=== PATIENT | male | born 1980 | race Caucasian/White ===

== ENCOUNTER 2016-10-29 15:31 | Emergency (ER) | payer MEDICAID ==
[~2016-10-29] VITALS: Ht 180.3 cm; Wt 102.5 kg
[~2016-10-29 15:31] MED LIST: AZIT250T94 PO; CEPH-443 PO; CETI-240 PO; CLIN-73 PO; DOXY-220 PO; HYDR-3498 PO; IBUP-1542 PO; NAPR-260 PO; PSEU120T11 PO; PSEU120T51 PO; UDROBDM PO
[2016-10-29 15:35] VITALS: Ht 180.3 cm; Wt 102.5 kg
--- NOTE | 2016-10-29 16:18 | ERD ---
ER Documentation Chief Complaint Date/Time DATE: 10/29/16 TIME: 16:15 Chief Complaint FEELING WEAK,FEELING FEBRILE,WEAKNESS HPI This 35-year-old male patient reports 3 day history of frontal sinus pressure. Fatigue. Patient denies any headache, blurred vision, or dizziness. Patient has tried [id number] medication, denies history of seasonal allergies, asthma, smoking, or antibiotic use within the last 3 months ROS All systems reviewed and are negative except as per history of present illness. Medications Home Meds Active Scripts Acetaminophen* (Tylenol*) 325 Mg Tablet, 2 TAB PO Q6 Y for PAIN AND OR ELEVATED TEMP, #20 TAB Prov:MAU MEDEL PA-C 11/03/16 Ondansetron (Ondansetron Odt) 4 Mg Tab.rapdis, 4 MG PO Q6H Y for NAUSEA AND/OR VOMITING, #10 TAB Prov:MAU MEDEL PA-C 11/03/16 Ibuprofen/Pseudoephedrine Hcl (ADVIL COLD-SINUS LIQUI-GELS) 1 Each Capsule, 1 EACH PO 4 for body aches, sinus congestion for 3 Days, CAP Prov:IAN,MELODY 10/29/16 Doxycycline Monohydrate* (Doxycycline Monohydrate*) 100 Mg Tablet, 100 MG PO BID for 10 Days, TAB Prov:JUAN C BEGUM MD 11/13/15 Cetirizine Hcl* (Cetirizine Hcl*) 10 Mg Tablet, 10 MG PO DAILY, #14 TAB Prov:JUAN C BEGUM MD 11/13/15 Pseudoephedrine Hcl (Sudafed 12 Hour) 120 Mg Tablet.sa, 120 MG PO q day for congestion, #14 Prov:JUAN C BEGUM MD 11/13/15 Doxycycline Monohydrate* (Doxycycline Monohydrate*) 100 Mg Tablet, 100 MG PO BID for 10 Days, TAB Prov:JUAN C BEGUM MD 11/13/15 Cephalexin* (Keflex*) 500 Mg Capsule, 500 MG PO QID for 7 Days, CAP Prov:PABLO QUEEN NP 11/03/15 Ibuprofen* (Motrin*) 600 Mg Tab, 600 MG PO Q8, #30 TAB 0 Refills Prov:GREGORIO BILL PA-C 09/28/15 Guaifenesin-Dextromethorphan* (Robitussin* DM) 100MG/10MG/5ML Syrup, 10 ML PO Q6H Y for COUGH, #240 ML 0 Refills Prov:GREGORIO BILL PA-C 09/28/15 Azithromycin* (Zithromax*) 250 Mg Tablet, 250 MG PO .ZPACK DIRECTED, #6 TAB 0 Refills TAKE 500 MG (2 TABS) THE FIRST DAY THEN 250 MG (1 TAB) DAYS 2-5 Prov:GREGORIO BILL PA-C 09/28/15 Pseudoephedrine Hcl (Sudafe 12-Hour) 120 Mg Tablet.er, 120 MG PO BID Y for CONGESTION, #14 TAB.SA Prov:JUAN C BEGUM MD 08/12/15 Ibuprofen* (Motrin*) 600 Mg Tab, 600 MG PO Q6, #20 TAB Prov:JUAN C BEGUM MD 08/12/15 Azithromycin* (Zithromax*) 250 Mg Tablet, 250 MG PO .ZPACK DIRECTED, #6 TAB TAKE 500 MG (2 TABS) THE FIRST DAY THEN 250 MG (1 TAB) DAYS 2-5 Prov:JUAN C BEGUM MD 08/12/15 Naproxen* (Naprosyn*) 500 Mg Tablet, 500 MG PO BID Y for PAIN AND/OR INFLAMMATION, #30 TAB Prov:ERIC GERBER PA-C 04/18/15 Clindamycin Hcl* (Clindamycin Hcl*) 300 Mg Capsule, 450 MG PO TID for 10 Days, CAP Prov:ERIC GERBER PA-C 04/18/15 Hydrocodone Bit-Acetaminophen* ([place]*) 5-325 Mg Tab, 1 TAB PO Q6 Y for PAIN, # 15 TAB Prov:ERIC GERBER PA-C 04/18/15 Reported Medications Hydrocodone Bit-Acetaminophen* (Hydrocodone-APAP*) 5-325 Tablet, 1 TAB PO Q6 Y for PAIN LEVEL 1-5, TAB 12/29/14 Allergies Allergies: Coded Allergies: cephalexin (Verified Allergy, Unknown, hives, 11/03/16) PMhx/Soc History of Surgery: No Anesthesia Reaction: No Hx Neurological Disorder: No Hx Respiratory Disorders: No Hx Cardiac Disorders: No Hx Miscellaneous Medical Probl: No Hx Alcohol Use: No Hx Substance Use: No Hx Tobacco Use: No Physical Exam Vitals Vitals stable, triage notes reviewed Physical Exam Const: No acute distress Head: Atraumatic Eyes: Normal Conjunctiva, clear, EOMI ENT: Right tympanic membrane retracted and dull, left tympanic membrane translucent, positive light reflex, and nasal mucosa edematous turbinates +2, no bleeding points, no maxillary or frontal sinus tenderness. Pharynx pink, uvula rises and falls with pronation. Neck: Full range of motion..~ No meningismus. Resp: Clear to auscultation bilaterally Cardio: Regular rate and rhythm, no murmurs Abd: Skin: Back: Ext: Neur: Awake and alert Psych: Normal Mood and Affect Procedures/MDM This pleasant 36-year-old male patient presents to the emergency department with 3 day history of nasal congestion, sinus pressure and fatigue. Patient has tried no [id number] medication. Denies any fever or dizziness. Low suspicion for bacterial infection. Patient likely suffering from seasonal allergies or upper respiratory infection. Plan to treat patient with over-the- counter Advil cold and sinus, saline nasal spray, rest, fluids for additional 7 days if symptoms still persist after 7 days follow-up with primary care physician I feel patient can be managed in the outpatient setting and is stable for discharge at this time. I have discussed results, examination findings, the treatment plan with the patient and family present prior to discharge. Indications for emergent reevaluation, side effects of medication were also discussed. All questions were answered. Patient verbalizes understanding and agrees with plan of care. Departure Diagnosis: Primary Impression: Upper respiratory infection URI type: unspecified viral URI Qualified Code: J06.9 - Viral upper respiratory tract infection Patient Instructions: Adult Self-Care for Colds Additional Instructions: Thank you for for coming to [facility] for your care today. Please ask your nurse or provider if you have questions about your care today and do not leave until all your questions have been answered. Please use any medications given as directed and follow-up with your doctor (or the doctor you were referred to) in the next 2-3 days. If you do not have a primary care doctor you may [place] [facility] [place] ([place] You may also use motrin and tylenol as needed for fever and/or pain unless instructed otherwise by your provider or nurse. Indications for more urgent follow-up have been discussed, but you may return to the Emergency Department at ANY time for any worrisome or worsening symptoms. If you have abdominal pain, please know that no test or exam you received is perfect and you should follow up within 8 hours for continued pain. If you had any imaging studies today, such as an X-Ray or CT Scan, these studies will be reviewed later by a radiologist. You will be called if there are important findings that were not identified today, so make sure the contact information you provided at registration is correct. If you received any narcotic pain control medicine today, such as Vicodin, Morphine or Dilaudid, your coordination and judgment may be affected for a number of hours. Please do not drive or operate heavy machinery, and you may want someone to assist you at home. If you were given a prescription for narcotic medication, be aware that it is very addictive- use sparingly and only if necessary. IAN SOSA Oct 29, 2016 16:18
[2016-10-29] MEDS ORDERED: IBUP1CAP2 PO (16:21)
== END 2016-10-29 16:23 | disposition home or self-care (01) ==
LOC: E/R 15:31
DX: J06.9 Acute upper respiratory infection, unspecified (principal)
CPT/HCPCS: 99283

== ENCOUNTER 2016-11-03 08:41 | Emergency (ER) | payer MEDICAID ==
[~2016-11-03] VITALS: Ht 170.2 cm; Wt 104.0 kg
[~2016-11-03 08:41] MED LIST changes: +IBUP1CAP2 PO
[2016-11-03 08:43] VITALS: Ht 170.2 cm; Wt 104.0 kg
[2016-11-03] MEDS ORDERED: SOD CHLORIDE 0.9% 1,000 ML IV STA (09:31)
[2016-11-03] MEDS ORDERED: morphine 4 MG/ML VIAL IV STA (09:31)
[2016-11-03] MEDS ORDERED: ONDANSETRON 4 MG INJ IV STA (09:31)
[2016-11-03 09:51] LABS: ADD SCAN DIFF NO
[2016-11-03] MEDS ORDERED: ACETAMINOPHEN 325 MG TAB PO ONE (10:00)
[2016-11-03 10:01] LABS: BASOPHIL # 0.1 10^3/ul (0.0-0.1); BASOPHILS % 1.3 % (0.0-2.0); EOSINOPHILS # 0.4 10^3/ul (0.0-0.5); HEMATOCRIT 46.4 % (42.0-52.0); HEMOGLOBIN 15.4 g/dl (14.0-18.0); LYMPHOCYTES # 2.9 10^3/ul (0.8-2.9); LYMPHOCYTES % 40.3 % (15.0-51.0); MEAN CORPUSCULAR HEMOGLOBIN 30.7 pg (29.0-33.0); MEAN CORPUSCULAR HGB CONC 33.2 g/dl (32.0-37.0); MEAN CORPUSCULAR VOLUME 92.4 fl (82.0-101.0); MEAN PLATELET VOLUME 11.1 fl (7.4-10.4); MONOCYTE # 0.5 10^3/ul (0.3-0.9); MONOCYTES % 6.4 % (0.0-11.0); NEUTROPHIL # 3.3 10^3/ul (1.6-7.5); NEUTROPHILS % 45.7 % (39.0-77.0); PLATELET COUNT 217 10^3/UL (140-415); RED BLOOD COUNT 5.02 10^6/ul (4.70-6.10); RED CELL DISTRIBUTION WIDTH 12.7 % (11.5-14.5); WHITE BLOOD COUNT 7.1 10^3/ul (4.8-10.8)
--- NOTE | 2016-11-03 10:10 | ERD ---
ER Documentation Chief Complaint Date/Time DATE: 11/03/16 TIME: 10:06 Chief Complaint left abdominal pain x 4 days HPI 35-year-old male presents to the emergency department complaining of left sided abdominal pain 6 days. Patient describes the pain as an intermittent 4 out of 10 burning in sensation with associated nausea. Patient states he has attempted to treat his discomfort with ibuprofen at home with some relief. Patient states he has never experienced this pain in the past. Patient denies any diarrhea, vomiting, or dysuria. Patient was seen here recently for upper respiratory symptoms. ROS All systems reviewed and are negative except as per history of present illness. Medications Home Meds Active Scripts Acetaminophen* (Tylenol*) 325 Mg Tablet, 2 TAB PO Q6 Y for PAIN AND OR ELEVATED TEMP, #20 TAB Prov:MAU MEDEL PA-C 11/03/16 Ondansetron (Ondansetron Odt) 4 Mg Tab.rapdis, 4 MG PO Q6H Y for NAUSEA AND/OR VOMITING, #10 TAB Prov:MAU MEDEL PA-C 11/03/16 Ibuprofen/Pseudoephedrine Hcl (ADVIL COLD-SINUS LIQUI-GELS) 1 Each Capsule, 1 EACH PO 4 for body aches, sinus congestion for 3 Days, CAP Prov:IANIAN GALEAS 10/29/16 Doxycycline Monohydrate* (Doxycycline Monohydrate*) 100 Mg Tablet, 100 MG PO BID for 10 Days, TAB Prov:JUAN C BEGUM MD 11/13/15 Cetirizine Hcl* (Cetirizine Hcl*) 10 Mg Tablet, 10 MG PO DAILY, #14 TAB Prov:JUAN C BEGUM MD 11/13/15 Pseudoephedrine Hcl (Sudafed 12 Hour) 120 Mg Tablet.sa, 120 MG PO q day for congestion, #14 Prov:JUAN C BEGUM MD 11/13/15 Doxycycline Monohydrate* (Doxycycline Monohydrate*) 100 Mg Tablet, 100 MG PO BID for 10 Days, TAB Prov:JUAN C BEGUM MD 11/13/15 Cephalexin* (Keflex*) 500 Mg Capsule, 500 MG PO QID for 7 Days, CAP Prov:PABLO QUEEN NP 11/03/15 Ibuprofen* (Motrin*) 600 Mg Tab, 600 MG PO Q8, #30 TAB 0 Refills Prov:GREGORIO BILL PA-C 09/28/15 Guaifenesin-Dextromethorphan* (Robitussin* DM) 100MG/10MG/5ML Syrup, 10 ML PO Q6H Y for COUGH, #240 ML 0 Refills Prov:GREGORIO BILL PA-C 09/28/15 Azithromycin* (Zithromax*) 250 Mg Tablet, 250 MG PO .ZPACK DIRECTED, #6 TAB 0 Refills TAKE 500 MG (2 TABS) THE FIRST DAY THEN 250 MG (1 TAB) DAYS 2-5 Prov:GREGORIO BILL PA-C 09/28/15 Pseudoephedrine Hcl (Sudafe 12-Hour) 120 Mg Tablet.er, 120 MG PO BID Y for CONGESTION, #14 TAB.SA Prov:JUAN C BEGUM MD 08/12/15 Ibuprofen* (Motrin*) 600 Mg Tab, 600 MG PO Q6, #20 TAB Prov:JUAN C BEGUM MD 08/12/15 Azithromycin* (Zithromax*) 250 Mg Tablet, 250 MG PO .ZPACK DIRECTED, #6 TAB TAKE 500 MG (2 TABS) THE FIRST DAY THEN 250 MG (1 TAB) DAYS 2-5 Prov:JUAN C BEGUM MD 08/12/15 Naproxen* (Naprosyn*) 500 Mg Tablet, 500 MG PO BID Y for PAIN AND/OR INFLAMMATION, #30 TAB Prov:ERIC GERBER PA-C 04/18/15 Clindamycin Hcl* (Clindamycin Hcl*) 300 Mg Capsule, 450 MG PO TID for 10 Days, CAP Prov:ERIC GERBER PA-C 04/18/15 Hydrocodone Bit-Acetaminophen* ([place]*) 5-325 Mg Tab, 1 TAB PO Q6 Y for PAIN, # 15 TAB Prov:ERIC GERBER PA-C 04/18/15 Reported Medications Hydrocodone Bit-Acetaminophen* (Hydrocodone-APAP*) 5-325 Tablet, 1 TAB PO Q6 Y for PAIN LEVEL 1-5, TAB 12/29/14 Allergies Allergies: Coded Allergies: cephalexin (Verified Allergy, Unknown, hives, 11/03/16) PMhx/Soc History of Surgery: No Anesthesia Reaction: No Hx Neurological Disorder: No Hx Respiratory Disorders: No Hx Cardiac Disorders: No Hx Miscellaneous Medical Probl: No Hx Alcohol Use: No Hx Substance Use: No Hx Tobacco Use: No Physical Exam Vitals Vital Signs Date Time Temp Pulse Resp B/P Pulse Ox O2 Delivery O2 Flow Rate FiO2 11/03/16 11:39 98.1 77 18 129/69 98 Room Air 11/03/16 08:43 96.9 65 18 127/88 98 Physical Exam Const: Well-developed, well-nourished, no acute distress Head: Atraumatic Eyes: Normal Conjunctiva ENT: Normal External Ears, Nose and Mouth. Neck: Full range of motion..~ No meningismus. Resp: Clear to auscultation bilaterally Cardio: Regular rate and rhythm, no murmurs Abd: Soft, non distended. Normal bowel sounds. Tenderness to palpation of upper and lower left quadrants. Negative McBurney's point tenderness. Negative Mueller sign. Skin: No petechiae or rashes Back: No midline or flank tenderness Ext: No cyanosis, or edema Neur: Awake and alert Psych: Normal Mood and Affect Result Diagram: 11/03/16 0940 11/03/16 0940 Results 24 hrs Laboratory Tests Test 11/03/16 09:40 White Blood Count 7.110^3/ul Red Blood Count 5.0210^6/ul Hemoglobin 15.4g/dl Hematocrit 46.4% Mean Corpuscular Volume 92.4fl Mean Corpuscular Hemoglobin 30.7pg Mean Corpuscular Hemoglobin Concent 33.2g/dl Red Cell Distribution Width 12.7% Platelet Count 98121^3/UL Mean Platelet Volume 11.1fl Neutrophils % 45.7% Lymphocytes % 40.3% Monocytes % 6.4% Eosinophils % 5.0% Basophils % 1.3% Nucleated Red Blood Cells % 0.0/100WBC Neutrophils # 3.310^3/ul Lymphocytes # 2.910^3/ul Monocytes # 0.510^3/ul Eosinophils # 0.410^3/ul Basophils # 0.110^3/ul Nucleated Red Blood Cells # 0.010^3/ul Urine Color LT. YELLOW Urine Clarity CLEAR Urine pH 6.5 Urine Specific [place] <=1.005 Urine Ketones NEGATIVE Urine Nitrite NEGATIVE Urine Bilirubin NEGATIVE Urine Urobilinogen 0.2 E.U./dL Urine Leukocyte Esterase NEGATIVE Urine Hemoglobin NEGATIVE Urine Glucose NEGATIVE% Urine Total Protein NEGATIVE Sodium Level 142mmol/L Potassium Level 4.3mmol/L Chloride Level 102mmol/L Carbon Dioxide Level 28mmol/L Anion Gap 16 Blood Urea Nitrogen 14mg/dl Creatinine 0.65mg/dl Glucose Level 98mg/dl Calcium Level 9.3mg/dl Total Bilirubin 0.5mg/dl Direct Bilirubin 0.00mg/dl Indirect Bilirubin 0.5mg/dl Aspartate Amino Transf (AST/SGOT) 33IU/L Alanine Aminotransferase (ALT/SGPT) 62IU/L Alkaline Phosphatase 61IU/L Total Protein 7.9g/dl Albumin 4.6g/dl Globulin 3.30g/dl Albumin/Globulin Ratio 1.39 Lipase 51U/L Current Medications Medications (Trade) Dose Ordered Sig/Jorje Route PRN Reason Start Time Stop Time Status Last Admin Dose Admin Sodium Chloride (NS) 1,000 ml @ 1,000 mls/hr Q1H STAT IV 11/03/16 09:31 11/03/16 10:30 DC 11/03/16 09:40 Morphine Sulfate (morphine) 4 mg ONCE STAT IV 11/03/16 09:31 11/03/16 09:45 DC Ondansetron HCl (Zofran Inj) 4 mg ONCE STAT IV 11/03/16 09:31 11/03/16 09:33 DC 11/03/16 09:41 Acetaminophen (Tylenol Tab) 650 mg ONCE ONCE PO 11/03/16 10:00 11/03/16 10:01 DC 11/03/16 09:50 Procedures/MDM PROCEDURE: CT Abdomen and pelvis without contrast. CLINICAL INDICATION: Left-sided abdominal pain for 6 days TECHNIQUE: CT scan of the abdomen and pelvis without contrast was performed on a multidetector high-resolution CT scan. . Coronal and sagittal reformatted images were obtained from the axial source images. Standard CT scan of the abdomen pelvis without contrast protocols were performed. The total exam CTDI equals 22.05 mGy and the total exam DLP equals 1463.51 mGy- cm. One or more of the following dose reduction techniques were used: - Automated exposure control. - Adjustment of the mA and/or kV according to patient size. Use of iterative reconstruction technique. COMPARISON: None. FINDINGS: The kidneys are normal in size without evidence of calcified renal calculi, hydronephrosis or intra renal masses bilaterally. The ureters and urinary bladder are unremarkable. The stomach, small bowel, large bowel and appendix are unremarkable. Negative for intra-abdominal free air, free fluid, abscesses or lymphadenopathy. The gallbladder is unremarkable and there is no evidence of biliary ductal dilation. Liver is normal in size with mild hepatic fatty infiltration but no focal hepatic lesions. The spleen adrenal glands pancreas are unremarkable. The aorta is unremarkable. The lung bases are unremarkable. There is degenerative changes lower thoracic and lumbar spine. There are no acute osseous findings are osteoblastic/osteolytic lesions. There is a small fat containing umbilical hernia but no herniated bowel or strangulation. IMPRESSION: 1. No evidence of calcified urinary calculi or obstructive uropathy. 2. Unremarkable appendix. 3. Negative for intra-abdominal free air fluid or lymphadenopathy. 4. Small fat containing umbilical hernia but no herniated bowel or strangulation. RPTAT:AAJJ Physician Satinder Date Time Electronically viewed and signed by Physician Satinder on 11/03/2016 10:35 BM/ CC: MAU MEDEL PA-C This is a 35-year-old male who presents with left-sided burning abdominal pain 6 days. Vital signs were reviewed. Patient is afebrile. Patient is not hypoxic, non-tachycardic and normotensive. Abdominal exam revealed left lower and left upper quadrant abdominal tenderness to superficial and deep palpation. CBC showed no evidence of systemic infection or severe anemia. CMP showed no evidence of electrolyte abnormalities, severe acidosis, alkalosis , renal failure, or liver disease. Lipase showed no evidence of acute pancreatitis. UA showed no evidence of acute infection or hematuria. Patient received a bolus of fluids as well as Zofran and Tylenol while in the emergency department. Patient reports improvement of symptoms post treatment. Abdominal CT unremarkable for appendicitis, lymphadenopathy, free air, or renal calculi. There was a small fat-containing umbilical hernia appreciated without evidence of herniation or strangulation of the bowel. Patient notes nausea but denies any vomiting or diarrhea. Patient's last bowel movement was this morning and normal for him. Given these findings, the patients presentation is most consistent with abdominal pain and umbilical hernia. I have a low suspicion for strangulated herniation of bowel, appendicitis, constipation, abdominal aortic aneurysm, kidney stone, diverticulitis, diverticulosis, small bowel obstruction, pancreatitis, cholecystitis, or other acute abdomen. Patient will receive Tylenol for pain. I instructed the patient to follow-up with primary care physician for referral to a GI specialist if symptoms continue. Based on patient's history of present illness and physical examination the decision was made to discharge. The patient was re-evaluated after ED treatment and stabilizing measures, and symptoms have improved. There is no evidence of life threatening injuries or illnesses at this time. On re-examination, patient resting in no distress, stable vital signs, reports feeling better and safe for discharge with outpatient follow up with PMD in 1-2 days. Patient given return precautions. Departure Diagnosis: Primary Impression: Abdominal pain Abdominal location: left lower quadrant Qualified Code: R10.32 - Left lower quadrant pain Additional Impression: Umbilical hernia Obstruction and gangrene presence: without obstruction or gangrene Qualified Code: K42.9 - Umbilical hernia without obstruction and without gangrene MAU MEDEL PA-C Nov 03, 2016 10:10
[2016-11-03 10:11] LABS: ADD UMIC NO; URINE BILIRUBIN (Dip) NEGATIVE (NEGATIVE); URINE BLOOD (Dip) NEGATIVE (NEGATIVE); URINE COLOR LT. YELLOW (YELLOW); URINE GLUCOSE (Dip) NEGATIVE (NEGATIVE); URINE KETONES (Dip) NEGATIVE (NEGATIVE); URINE LEUKOCYTE ESTERASE (Dip) NEGATIVE (NEGATIVE); URINE NITRITE (Dip) NEGATIVE (NEGATIVE); URINE TOTAL PROTEIN (Dip) NEGATIVE (NEGATIVE); URINE UROBILINOGEN (Dip) 0.2 E.U./dL (0.1-1.0)
[2016-11-03 10:13] LABS: ALBUMIN 4.6 g/dl (3.3-4.9)
[2016-11-03 10:14] LABS: POTASSIUM 4.3 mmol/L (3.5-5.1)
[2016-11-03 10:16] LABS: ALBUMIN/GLOBULIN RATIO 1.39; BILIRUBIN,INDIRECT 0.5 mg/dl (0-1.1); BILIRUBIN,TOTAL 0.5 mg/dl (0.2-1.3); CREATININE 0.65 mg/dl (0.61-1.24); TOTAL PROTEIN 7.9 g/dl (6.1-8.1)
[2016-11-03 10:17] LABS: CALCIUM 9.3 mg/dl (8.4-10.2)
--- NOTE | 2016-11-03 10:36 | RADRPT ---
PROCEDURE: CT Abdomen and pelvis without contrast. CLINICAL INDICATION: Left-sided abdominal pain for 6 days TECHNIQUE: CT scan of the abdomen and pelvis without contrast was performed on a multidetector hig h-resolution CT scan. . Coronal and sagittal reformatted images were obtained from the axial [facility] images. Standard CT scan of the abdomen pelvis without contrast protocols were performed. The total exam CTDI equals 22.05 mGy and the total exam DLP equals 1463.51 mGy-cm. One or more of the following dose reduction techniques were used: - Automated exposure control. - Adjustment of the mA and/or kV according to patient size. Use of iterative reconstruction technique. COMPARISON: None. FINDINGS: The kidneys are normal in size without evidence of calcified renal calculi, hydronephrosis or intra renal masses bilaterally. The ureters and urinary bladder are unremarkable. The stomach, small bowel, large bowel and appendix are unremarkable. Negative for intra-abdominal f ree air, free fluid, abscesses or lymphadenopathy. The gallbladder is unremarkable and there is no evidence of biliary ductal dilation. Liver is kinza l in size with mild hepatic fatty infiltration but no focal hepatic lesions. The spleen adrenal gla nds pancreas are unremarkable. The aorta is unremarkable. The lung bases are unremarkable. There is degenerative changes lower th oracic and lumbar spine. There are no acute osseous findings are osteoblastic/osteolytic lesions. There is a small fat containing umbilical hernia but no herniated bowel or strangulation. IMPRESSION: 1. No evidence of calcified urinary calculi or obstructive uropathy. 2. Unremarkable appendix. 3. Negative for intra-abdominal free air fluid or lymphadenopathy. 4. Small fat containing umbilical hernia but no herniated bowel or strangulation. RPTAT:AAJJ Physician Satinder Date Time Electronically viewed and signed by Physician Satinder on 11/03/2016 10:35 BM/
[2016-11-03] MEDS ORDERED: ACET325T33 PO (11:18)
[2016-11-03] MEDS ORDERED: ONDA4TAB14 PO (11:18)
[2016-11-03 11:39] VITALS: BP 129/69; PULSE 77; RESP 18; TEMP 98.1
== END 2016-11-03 11:40 | disposition home or self-care (01) ==
LOC: FTE 08:41
DX: R10.32 Left lower quadrant pain (principal); K42.9 Umbilical hernia without obstruction or gangrene; R11.0 Nausea
CPT/HCPCS: 74176; 80053; 81003; 83690; 85025; J2405; J7030; Z7610; 36415; 96361; 96374; J2270

== ENCOUNTER 2017-02-05 14:16 | Emergency (ER) | payer MEDICAID ==
[~2017-02-05] VITALS: Ht 167.6 cm; Wt 106.0 kg
[~2017-02-05 14:16] MED LIST changes: +ACET325T33 PO; +ONDA4TAB14 PO
[2017-02-05 14:18] VITALS: Ht 167.6 cm; Wt 106.0 kg
[2017-02-05] MEDS ORDERED: ONDANSETRON (ODT) 4 MG TAB ODT STA (14:59)
[2017-02-05] MEDS ORDERED: ONDANSETRON 4 MG INJ IV STA (15:00)
[2017-02-05] MEDS ORDERED: HYDROCODONE/APAP (5/325) TAB PO ONE (15:00)
[2017-02-05] MEDS ORDERED: morphine 4 MG/ML VIAL IV STA (15:00)
[2017-02-05] MEDS ORDERED: SOD CHLORIDE 0.9% 1,000 ML IV ONE (15:00)
--- NOTE | 2017-02-05 15:13 | ERD ---
ER Documentation Chief Complaint Date/Time DATE: 02/05/17 TIME: 15:11 Chief Complaint LLQ pain & diarrhea x1 day, denies vomitting HPI 36 yo male comes in with 2 day history of left lower quadrant pain, and dark stools she reports nausea as well. He reports black stools, sharp and localized pain to the left lower quadrant, moderate to severe. He has tried taking no vomiting. Denies fevers or chills. ROS All systems reviewed and are negative except as per history of present illness. Medications Home Meds Active Scripts Ondansetron (Ondansetron Odt) 4 Mg Tab.rapdis, 4 MG PO Q6H Y for NAUSEA AND/OR VOMITING, #10 TAB Prov:KRISTIN DE LOS SANTOS PA-C 02/05/17 Dicyclomine Hcl* (Bentyl*) 10 Mg Capsule, 10 MG PO QID, #15 CAP Prov:KRISTIN DE LOS SANTOS PA-C 02/05/17 Acetaminophen* (Tylenol*) 325 Mg Tablet, 2 TAB PO Q6 Y for PAIN AND OR ELEVATED TEMP, #20 TAB Prov:MAU MEDEL PA-C 11/03/16 Ondansetron (Ondansetron Odt) 4 Mg Tab.rapdis, 4 MG PO Q6H Y for NAUSEA AND/OR VOMITING, #10 TAB Prov:MAU MEDEL PA-C 11/03/16 Ibuprofen/Pseudoephedrine Hcl (ADVIL COLD-SINUS LIQUI-GELS) 1 Each Capsule, 1 EACH PO 4 for body aches, sinus congestion for 3 Days, CAP Prov:IAN SOSA 10/29/16 Doxycycline Monohydrate* (Doxycycline Monohydrate*) 100 Mg Tablet, 100 MG PO BID for 10 Days, TAB Prov:JUAN C BEGUM MD 11/13/15 Cetirizine Hcl* (Cetirizine Hcl*) 10 Mg Tablet, 10 MG PO DAILY, #14 TAB Prov:JUAN C BEGUM MD 11/13/15 Pseudoephedrine Hcl (Sudafed 12 Hour) 120 Mg Tablet.sa, 120 MG PO q day for congestion, #14 Prov:JUAN C BEGUM MD 11/13/15 Doxycycline Monohydrate* (Doxycycline Monohydrate*) 100 Mg Tablet, 100 MG PO BID for 10 Days, TAB Prov:JUAN C BEGUM MD 11/13/15 Cephalexin* (Keflex*) 500 Mg Capsule, 500 MG PO QID for 7 Days, CAP Prov:PABLO QUEEN NP 11/03/15 Ibuprofen* (Motrin*) 600 Mg Tab, 600 MG PO Q8, #30 TAB 0 Refills Prov:GREGORIO BILL PA-C 09/28/15 Guaifenesin-Dextromethorphan* (Robitussin* DM) 100MG/10MG/5ML Syrup, 10 ML PO Q6H Y for COUGH, #240 ML 0 Refills Prov:GREGORIO BILL PA-C 09/28/15 Azithromycin* (Zithromax*) 250 Mg Tablet, 250 MG PO .ZPACK DIRECTED, #6 TAB 0 Refills TAKE 500 MG (2 TABS) THE FIRST DAY THEN 250 MG (1 TAB) DAYS 2-5 Prov:GREGORIO BILL PA-C 09/28/15 Pseudoephedrine Hcl (Sudafe 12-Hour) 120 Mg Tablet.er, 120 MG PO BID Y for CONGESTION, #14 TAB.SA Prov:JUAN C BEGUM MD 08/12/15 Ibuprofen* (Motrin*) 600 Mg Tab, 600 MG PO Q6, #20 TAB Prov:JUAN C BEGUM MD 08/12/15 Azithromycin* (Zithromax*) 250 Mg Tablet, 250 MG PO .ZPACK DIRECTED, #6 TAB TAKE 500 MG (2 TABS) THE FIRST DAY THEN 250 MG (1 TAB) DAYS 2-5 Prov:JUAN C BEGUM MD 08/12/15 Naproxen* (Naprosyn*) 500 Mg Tablet, 500 MG PO BID Y for PAIN AND/OR INFLAMMATION, #30 TAB Prov:ERIC GERBER PA-C 04/18/15 Clindamycin Hcl* (Clindamycin Hcl*) 300 Mg Capsule, 450 MG PO TID for 10 Days, CAP Prov:ERIC GERBER PA-C 04/18/15 Hydrocodone Bit-Acetaminophen* ([place]*) 5-325 Mg Tab, 1 TAB PO Q6 Y for PAIN, # 15 TAB Prov:ERIC GERBER PA-C 04/18/15 Reported Medications Hydrocodone Bit-Acetaminophen* (Hydrocodone-APAP*) 5-325 Tablet, 1 TAB PO Q6 Y for PAIN LEVEL 1-5, TAB 12/29/14 Allergies Allergies: Coded Allergies: cephalexin (Verified Allergy, Unknown, hives, 11/03/16) PMhx/Soc History of Surgery: No Anesthesia Reaction: No Hx Neurological Disorder: No Hx Respiratory Disorders: No Hx Cardiac Disorders: No Hx Miscellaneous Medical Probl: No Hx Alcohol Use: No Hx Substance Use: No Hx Tobacco Use: No Physical Exam Vitals Vital Signs Date Time Temp Pulse Resp B/P Pulse Ox O2 Delivery O2 Flow Rate FiO2 02/05/17 14:18 97.6 78 18 122/78 99 Physical Exam General: Well-developed, well-nourished. The patient appears in no acute distress. HEENT: Head is normocephalic, atraumatic. No scleral icterus. Neck: Supple. Nontender. Lungs: Clear to auscultation. Normal air movement. Heart: Regular rate and rhythm. S1 and S2 are normal. No murmurs, gallops, or rubs. Abdomen: Soft, tender to palpation in the left lower quadrant nondistended. Bowel sounds are normoactive. No masses, no rebound pain or guarding. There is no McBurney's tenderness. Extremities: No clubbing or cyanosis. Normal pulses. Moving extremities x 4. No weakness. Neurologic: Alert and oriented 3. No focal deficits. Skin: Normal turgor. No rash or lesions. Result Diagram: 02/05/17 1510 02/05/17 1510 Results 24 hrs Laboratory Tests Test 02/05/17 15:10 White Blood Count 6.910^3/ul Red Blood Count 4.6110^6/ul Hemoglobin 14.5g/dl Hematocrit 41.5% Mean Corpuscular Volume 90.0fl Mean Corpuscular Hemoglobin 31.5pg Mean Corpuscular Hemoglobin Concent 34.9g/dl Red Cell Distribution Width 12.4% Platelet Count 31081^3/UL Mean Platelet Volume 10.6fl Neutrophils % 50.8% Lymphocytes % 31.2% Monocytes % 11.7% Eosinophils % 4.6% Basophils % 1.0% Nucleated Red Blood Cells % 0.0/100WBC Neutrophils # 3.510^3/ul Lymphocytes # 2.210^3/ul Monocytes # 0.810^3/ul Eosinophils # 0.310^3/ul Basophils # 0.110^3/ul Nucleated Red Blood Cells # 0.010^3/ul Urine Color YELLOW Urine Clarity CLEAR Urine pH 5.0 Urine Specific [place] 1.042 Urine Ketones NEGATIVEmg/dL Urine Nitrite NEGATIVEmg/dL Urine Bilirubin NEGATIVEmg/dL Urine Urobilinogen 1+mg/dL Urine Leukocyte Esterase NEGATIVELeu/ul Urine Microscopic RBC 1/HPF Urine Microscopic WBC 1/HPF Urine Mucus FEW/HPF Urine Hemoglobin NEGATIVEmg/dL Urine Glucose NEGATIVEmg/dL Urine Total Protein 1+mg/dl Sodium Level 144mmol/L Potassium Level 4.1mmol/L Chloride Level 99mmol/L Carbon Dioxide Level 31mmol/L Anion Gap 18 Blood Urea Nitrogen 14mg/dl Creatinine 0.70mg/dl Glucose Level 88mg/dl Calcium Level 9.1mg/dl Total Bilirubin 0.2mg/dl Direct Bilirubin 0.00mg/dl Indirect Bilirubin 0.2mg/dl Aspartate Amino Transf (AST/SGOT) 48IU/L Alanine Aminotransferase (ALT/SGPT) 105IU/L Alkaline Phosphatase 66IU/L Total Protein 7.5g/dl Albumin 4.3g/dl Globulin 3.20g/dl Albumin/Globulin Ratio 1.34 Lipase 83U/L Current Medications Medications (Trade) Dose Ordered Sig/Jorje Route PRN Reason Start Time Stop Time Status Last Admin Dose Admin Ondansetron HCl (Zofran Odt) 4 mg ONCE STAT ODT 02/05/17 14:59 02/05/17 15:02 DC Acetaminophen/ Hydrocodone Bitart ([place] (5/325)) 1 tab ONCE ONCE PO 02/05/17 15:00 02/05/17 15:02 DC Morphine Sulfate (morphine) 4 mg ONCE STAT IV 02/05/17 15:00 02/05/17 15:03 DC 02/05/17 15:16 Ondansetron HCl 4 mg 4 mg ONCE STAT IV 02/05/17 15:00 02/05/17 15:03 DC 02/05/17 15:16 Sodium Chloride (NS) 1,000 ml @ 1,000 mls/hr Q1H ONCE IV 02/05/17 15:00 02/05/17 15:59 DC 02/05/17 15:16 IV Flush 10 ml 10 ml STK-MED ONCE .ROUTE 02/05/17 16:36 02/05/17 16:37 DC 02/05/17 16:55 Sodium Chloride (NS) 100 ml @ ud STK-MED ONCE .ROUTE 02/05/17 16:36 02/05/17 16:37 DC 02/05/17 16:55 Iohexol (Omnipaque 300mg/ ml) 150 ml STK-MED ONCE .ROUTE 02/05/17 16:36 02/05/17 16:37 DC 02/05/17 16:55 DIAGNOSTIC IMAGING REPORT Patient: MARK ZAMAN : 1980 Age: 36 Sex: M MR #: [id number] DOS: 02/05/17 1500 Ordering MD: KRISTIN DE LOS SANTOS PA-C Location: [facility] Room/Bed: PROCEDURE: CT Abdomen and Pelvis with contrast. CLINICAL INDICATION: Left lower quadrant pain with dark stools and diarrhea. TECHNIQUE: CT scan of the abdomen and pelvis with contrast was performed. The patient was scanned following the uncomplicated intravenous administration of 100 cc of Omnipaque 300. Coronal and sagittal reformatted images were obtained from the axial source images. Images were reviewed on a high- resolution PACS workstation. CTDI 20 mGy, DLP 1309 mGy-cm One or more of the following dose reduction techniques were used: Automated exposure control Adjustment of the mA and/or kV according to patient size. Use of iterative reconstruction technique. COMPARISON: 11/03/2016 FINDINGS: There is minimal, dependent atelectasis at the lung bases. Otherwise, the lung bases are clear, without mass or pleural effusion. The heart size is normal. The aorta and its branches are normal in size and caliber. There is hepatomegaly in which the right lobe of liver measures about 20.8 cm cranial-caudal. There is diffuse fatty infiltration of the liver. The portal veins, splenic vein and superior mesenteric vein are unremarkable. The gallbladder is unremarkable, without cholelithiasis. The spleen, pancreas, and adrenal glands are unremarkable. The kidneys are unremarkable. There are no renal calculi or hydronephrosis. The ureters are normal in course and caliber, without urolithiasis. The distal esophagus is unremarkable. The stomach is distended with debris and grossly unremarkable. Small bowel loops are normal in caliber, without evidence for small bowel obstruction. There is no bowel wall thickening or pneumatosis. The appendix is visualized and is unremarkable. A few diverticula are visualized within the sigmoid colon. There is no free intraperitoneal fluid or pneumoperitoneum. No mesenteric or retroperitoneal lymphadenopathy is present. Several sub 5 mm mesenteric lymph nodes are again noted. There is no pelvic lymphadenopathy. The bladder is partially distended and grossly unremarkable. The prostate and seminal vesicles are unremarkable. No pelvic free fluid. A small fat containing umbilical hernia is again noted. The abdominal wall is otherwise unremarkable. Multilevel Schmorl's nodes are noted throughout the thoracolumbar spine. No acute fractures are present. RPTAT: QQ IMPRESSION: 1. No acute intra-abdominal abnormality. 2. Fatty infiltration of the liver with hepatomegaly. 3. Multilevel Schmorl's nodes throughout the thoracolumbar spine. 4. Few diverticula within the sigmoid colon without diverticulitis. .Cayla Cote MD, MD Date Time Electronically viewed and signed by .Cayla Cote MD, MD on 02/05/2017 17: 12 .T/ Procedures/MDM ER course: Patient was given a fluid bolus of normal saline 1 L, morphine 2 mg, Zofran 4 mg IV. He also received NS half liter bolus. Medical decision making: This 36-year-old male presents with left lower quadrant pain, diarrhea, nausea for the past 1-2 days. Patient symptoms appear to be benign, there is no evidence of anemia associated, no diverticulosis, no intra-abdominal abscess or perforation. His symptoms are likely from a viral syndrome. He was given instructions to do a clear liquid diet, he will be given Bentyl as well as Zofran for symptoms. Departure Diagnosis: Primary Impression: Diarrhea Condition: KRISTIN Howard PA-C Feb 05, 2017 15:13
[2017-02-05 15:31] LABS: BASOPHIL # 0.1 10^3/ul (0.0-0.1); EOSINOPHILS # 0.3 10^3/ul (0.0-0.5); EOSINOPHILS % 4.6 % (0.0-7.0); HEMATOCRIT 41.5 % (42.0-52.0); HEMOGLOBIN 14.5 g/dl (14.0-18.0); LYMPHOCYTES # 2.2 10^3/ul (0.8-2.9); LYMPHOCYTES % 31.2 % (15.0-51.0); MEAN CORPUSCULAR HEMOGLOBIN 31.5 pg (29.0-33.0); MEAN CORPUSCULAR HGB CONC 34.9 g/dl (32.0-37.0); MEAN PLATELET VOLUME 10.6 fl (7.4-10.4); MONOCYTE # 0.8 10^3/ul (0.3-0.9); MONOCYTES % 11.7 % (0.0-11.0); NEUTROPHIL # 3.5 10^3/ul (1.6-7.5); NEUTROPHILS % 50.8 % (39.0-77.0); PLATELET COUNT 236 10^3/UL (140-415); RED BLOOD COUNT 4.61 10^6/ul (4.70-6.10); RED CELL DISTRIBUTION WIDTH 12.4 % (11.5-14.5); WHITE BLOOD COUNT 6.9 10^3/ul (4.8-10.8)
[2017-02-05 15:34] LABS: ADD UMIC YES; UR ASCORBIC ACID NEGATIVE (NEGATIVE); UR BILIRUBIN (Dip) NEGATIVE (NEGATIVE); UR BLOOD (Dip) NEGATIVE (NEGATIVE); UR CLARITY CLEAR (CLEAR); UR COLOR YELLOW (YELLOW); UR GLUCOSE (Dip) NEGATIVE (NEGATIVE); UR KETONES (Dip) NEGATIVE (NEGATIVE); UR LEUKOCYTE ESTERASE (Dip) NEGATIVE Leu/ul (NEGATIVE); UR MUCUS FEW /HPF (NONE SEEN); UR NITRITE (Dip) NEGATIVE (NEGATIVE); UR RBC 1 /HPF (0-5); UR SPECIFIC GRAVITY (Dip) 1.042 (1.003-1.030); UR TOTAL PROTEIN (Dip) 1+ mg/dl (NEGATIVE); UR UROBILINOGEN (Dip) 1+ mg/dL (NEGATIVE)
[2017-02-05 15:51] LABS: ALBUMIN 4.3 g/dl (3.3-4.9); ALBUMIN/GLOBULIN RATIO 1.34; BILIRUBIN,INDIRECT 0.2 mg/dl (0-1.1); BILIRUBIN,TOTAL 0.2 mg/dl (0.2-1.3); CALCIUM 9.1 mg/dl (8.4-10.2); CREATININE 0.7 mg/dl (0.61-1.24); POTASSIUM 4.1 mmol/L (3.5-5.1); TOTAL PROTEIN 7.5 g/dl (6.1-8.1)
[2017-02-05] MEDS ORDERED: IOHEXOL 300MG/ML 150 ML BTL ONE (16:36)
[2017-02-05] MEDS ORDERED: SOD CHLORIDE 0.9% 100 ML ONE (16:36)
--- NOTE | 2017-02-05 17:12 | RADRPT ---
PROCEDURE: CT Abdomen and Pelvis with contrast. CLINICAL INDICATION: Left lower quadrant pain with dark stools and diarrhea. TECHNIQUE: CT scan of the abdomen and pelvis with contrast was performed. The patient was scanned following the uncomplicated intravenous administration of 100 cc of Omnipaque 300. Coronal and sag ittal reformatted images were obtained from the axial source images. Images were reviewed on a high- resolution PACS workstation. CTDI 20 mGy, DLP 1309 mGy-cm One or more of the following dose reduction techniques were used: Automated exposure control Adjustment of the mA and/or kV according to patient size. Use of iterative reconstruction technique. COMPARISON: 11/03/2016 FINDINGS: There is minimal, dependent atelectasis at the lung bases. Otherwise, the lung bases are clear, with out mass or pleural effusion. The heart size is normal. The aorta and its branches are normal in size and caliber. There is hepatomegaly in which the right lobe of liver measures about 20.8 cm cranial-caudal. There is diffuse fatty infiltration of the liver. The portal veins, splenic vein and superior mesenteric vein are unremarkable. The gallbladder is unremarkable, without cholelithiasis. The spleen, pancreas, and adrenal glands are unremarkable. The kidneys are unremarkable. There are no renal calculi or hydronephrosis. The ureters are normal in course and caliber, without urolithiasis. The distal esophagus is unremarkable. The stomach is distended with debris and grossly unremarkable . Small bowel loops are normal in caliber, without evidence for small bowel obstruction. There is no bowel wall thickening or pneumatosis. The appendix is visualized and is unremarkable. A few dive rticula are visualized within the sigmoid colon. There is no free intraperitoneal fluid or pneumope ritoneum. No mesenteric or retroperitoneal lymphadenopathy is present. Several sub 5 mm mesenteric lymph node s are again noted. There is no pelvic lymphadenopathy. The bladder is partially distended and grossly unremarkable. The prostate and seminal vesicles are unremarkable. No pelvic free fluid. A small fat containing umbilical hernia is again noted. The abdominal wall is otherwise unremarkabl e. Multilevel Schmorl's nodes are noted throughout the thoracolumbar spine. No acute fractures are present. RPTAT: QQ IMPRESSION: 1. No acute intra-abdominal abnormality. 2. Fatty infiltration of the liver with hepatomegaly. 3. Multilevel Schmorl's nodes throughout the thoracolumbar spine. 4. Few diverticula within the sigmoid colon without diverticulitis. .Cayla Cote MD, Date Time Electronically viewed and signed by .Calya Cote MD, MD on 02/05/2017 17:12 .T/
[2017-02-05] MEDS ORDERED: ONDA4TAB14 PO (17:38)
[2017-02-05] MEDS ORDERED: DICY10CA60 PO (17:38)
== END 2017-02-05 17:48 | disposition home or self-care (01) ==
LOC: FTE 14:16
DX: R19.7 Diarrhea, unspecified (principal); R11.0 Nausea
CPT/HCPCS: 36415; 74177; 80053; 81001; 83690; 85025; 96374; 96375; J2270; J2405; J7030; Q9967; Z7502; Z7610

== ENCOUNTER 2017-07-20 08:43 | Emergency (ER) | END 2017-07-20 10:28 | disposition home or self-care (01) ==

== ENCOUNTER 2018-03-12 14:12 | Emergency (ER) | END 2018-03-12 19:08 | disposition home or self-care (01) ==

== ENCOUNTER 2018-11-24 16:48 | Emergency (ER) | payer MEDICAID ==
[~2018-11-24] VITALS: Ht 170.2 cm; Wt 112.0 kg
[~2018-11-24 16:48] MED LIST changes: +AZIT250T PO; -AZIT250T94 PO; -CETI-240 PO; +CETI10TA19 PO; -CLIN-73 PO; +CLIN300C10 PO; +DICY10CA40 PO; -DOXY-220 PO; +DOXY100T21 PO; +FLUT9.9S NASAL; +GUAI5SYR2 PO; +LIDO700A29 TP; +METH500T PO; -NAPR-260 PO; +NAPR-985 PO; +OSEL75CA23 PO; +PSEU120T12 PO; -PSEU120T51 PO; -UDROBDM PO
[2018-11-24 16:54] VITALS: Ht 170.2 cm; Wt 112.0 kg
[2018-11-24] MEDS ORDERED: TETRACAINE 0.5% 4 ML OPH RIGHT EYE ONE (20:00)
[2018-11-24] MEDS ORDERED: ERYT1OIN6 BOTH EYES (20:21)
[2018-11-24] MEDS ORDERED: HYDR-4011 PO (20:21)
[2018-11-24] MEDS ORDERED: FLUORESCEIN STRIP BOTH EYES ONE (20:30)
[2018-11-24 20:46] VITALS: BP 124/78; PULSE 73; RESP 20
--- NOTE | 2018-11-25 03:46 | ERD ---
ER Documentation Chief Complaint Chief Complaint Bilateral eye redness and itching, worse on R X 1 day HPI 38-year-old male presents to the ED complaining of sudden onset bilateral eye redness, pain and itching since last night. Patient believes the wind might have flown some dust into his eyes yesterday, causing his pain. He reports associated photophobia and tearing. Denies any changes in vision. Denies any fevers or chills. Denies any facial swelling. Denies any known direct trauma. He does not wear any contacts or glasses. ROS All systems reviewed and are negative except as per history of present illness. Medications Home Meds Active Scripts Hydrocodone/Acetaminophen ([place] 5-325 Tablet) 1 Each Tablet, 1 TAB PO Q6H PRN for PAIN, #7 TAB Prov:KONSTANTIN KRISHNAN PA-C 11/24/18 Erythromycin Base (Erythromycin) 1 Gm Oint...g., 1 APPLIC BOTH EYES QID for 5 Days Prov:KONSTANTIN KRISHNAN PA-C 11/24/18 Azithromycin* (Zithromax*) 250 Mg Tablet, 250 MG PO .ZPACK DIRECTED, #6 TAB TAKE 500 MG (2 TABS) THE FIRST DAY THEN 250 MG (1 TAB) DAYS 2-5 Prov:MICHELLE SCANLON PA-C 08/15/18 Lidocaine (Lidoderm) 1 Each Adh..patch, 1 EACH TP Q24H PRN for PAIN, #10 Leave patch on for 12 hours, off for 12 hours, then apply new one. Prov:GURWINDER MONIQUE NP 03/12/18 Methocarbamol* (Robaxin*) 500 Mg Tab, 500 MG PO Q8 PRN for MUSCLE SPASMS, #15 TAB Prov:GURWINDER MONIQUE NP 03/12/18 Ibuprofen* (Motrin*) 600 Mg Tab, 600 MG PO Q6H PRN for PAIN AND OR ELEVATED TEMP, #30 TAB Prov:GURWINDER MONIQUE NP 03/12/18 Oseltamivir Phosphate* (Tamiflu*) 75 Mg Capsule, 75 MG PO BID for 5 Days, #10 CAP Prov:EDUARDA JIMENEZ PA-C 07/20/17 Fluticasone Propionate (Flonase Allergy Relief) 9.9 Ml [place].susp, 2 SPRAY NASAL DAILY, #1 BOTTLE TO EACH NOSTRIL Prov:EDUARDA JIMENEZ PA-C 07/20/17 Ibuprofen* (Motrin*) 600 Mg Tab, 600 MG PO Q6, #30 TAB Prov:EDUARDA JIMENEZ PA-C 07/20/17 Ondansetron (Ondansetron Odt) 4 Mg Tab.rapdis, 4 MG PO Q6H PRN for NAUSEA AND/OR VOMITING, #10 TAB Prov:KRISTIN DE LOS SANTOS PA-C 02/05/17 Dicyclomine HCl (Dicyclomine HCl) 10 Mg Capsule, 10 MG PO QID, #15 CAP Prov:KRISTIN DE LOS SANTOS PA-C 02/05/17 Acetaminophen* (Tylenol*) 325 Mg Tablet, 2 TAB PO Q6 PRN for PAIN AND OR ELEVATED TEMP, #20 TAB Prov:MAU MEDEL PA-C 11/03/16 Ondansetron (Ondansetron Odt) 4 Mg Tab.rapdis, 4 MG PO Q6H PRN for NAUSEA AND/OR VOMITING, #10 TAB Prov:MAU MEDEL PA-C 11/03/16 Ibuprofen/Pseudoephedrine Hcl (ADVIL COLD-SINUS LIQUI-GELS) 1 Each Capsule, 1 EACH PO 4 for body aches, sinus congestion for 3 Days, CAP Prov:IAN SOSA 10/29/16 Doxycycline Monohydrate* (Doxycycline Monohydrate*) 100 Mg Tablet, 100 MG PO BID for 10 Days, TAB Prov:JUAN C BEGUM MD 11/13/15 Cetirizine Hcl* (Cetirizine Hcl*) 10 Mg Tablet, 10 MG PO DAILY, #14 TAB Prov:JUAN C BEGUM MD 11/13/15 Pseudoephedrine Hcl (Sudafed 12 Hour) 120 Mg Tablet.sa, 120 MG PO q day for congestion, #14 Prov:JUAN C BEGUM MD 11/13/15 Doxycycline Monohydrate* (Doxycycline Monohydrate*) 100 Mg Tablet, 100 MG PO BID for 10 Days, TAB Prov:JUAN C BEGUM MD 11/13/15 Cephalexin* (Keflex*) 500 Mg Capsule, 500 MG PO QID for 7 Days, CAP Prov:PABLO QUEEN NP 11/03/15 Ibuprofen* (Motrin*) 600 Mg Tab, 600 MG PO Q8, #30 TAB 0 Refills Prov:GREGORIO BILL PA-C 09/28/15 Guaifenesin-Dextromethorphan* (Robitussin* DM) 100MG/10MG/5ML Syrup, 10 ML PO Q6H PRN for COUGH, #240 ML 0 Refills Prov:GREGORIO BILL PA-C 09/28/15 Azithromycin* (Zithromax*) 250 Mg Tablet, 250 MG PO .ZPACK DIRECTED, #6 TAB 0 Refills TAKE 500 MG (2 TABS) THE FIRST DAY THEN 250 MG (1 TAB) DAYS 2-5 Prov:GREGORIO BILL PA-C 09/28/15 Pseudoephedrine Hcl (Sudafe 12-Hour) 120 Mg Tablet.er, 120 MG PO BID PRN for CONGESTION, #14 TAB.SA Prov:JUAN C BEGUM MD 08/12/15 Ibuprofen* (Motrin*) 600 Mg Tab, 600 MG PO Q6, #20 TAB Prov:JUAN C BEGUM MD 08/12/15 Azithromycin* (Zithromax*) 250 Mg Tablet, 250 MG PO .ZPACK DIRECTED, #6 TAB TAKE 500 MG (2 TABS) THE FIRST DAY THEN 250 MG (1 TAB) DAYS 2-5 Prov:JUAN C BEGUM MD 08/12/15 Naproxen* (Naprosyn*) 500 Mg Tablet, 500 MG PO BID PRN for PAIN AND/OR INFLAMMA TION, #30 TAB Prov:ERIC GERBER PA-C 04/18/15 Clindamycin Hcl* (Clindamycin Hcl*) 300 Mg Capsule, 450 MG PO TID for 10 Days, CAP Prov:ERIC GERBER PA-C 04/18/15 Hydrocodone Bit-Acetaminophen* ([place]inety Six*) 5-325 Mg Tab, 1 TAB PO Q6 PRN for PAIN, #15 TAB Prov:ERIC GERBER PA-C 04/18/15 Reported Medications Hydrocodone Bit-Acetaminophen* (Hydrocodone-APAP*) 5-325 Tablet, 1 TAB PO Q6 PRN for PAIN LEVEL 1-5, TAB 12/29/14 Allergies Allergies: Coded Allergies: cephalexin (Verified Allergy, Unknown, hives, 11/03/16) PMhx/Soc History of Surgery: No Anesthesia Reaction: No Hx Neurological Disorder: No Hx Respiratory Disorders: No Hx Cardiac Disorders: No Hx Miscellaneous Medical Probl: No Hx Alcohol Use: Yes (ocassional) Hx Substance Use: No Hx Tobacco Use: No Physical Exam Vitals Vital Signs Date Temp Pulse Resp B/P (MAP) Pulse Ox O2 O2 Flow FiO2 Time Delivery Rate 11/24/18 98.6 73 20 124/78 99 Room Air 20:46 (93) 11/24/18 98.5 78 18 135/85 100 16:54 (102) Physical Exam Const: No acute distress Head: Atraumatic Eye Exam w/ reynaga lamp Visual Tena: Intact in all four quadrants bilaterally Lac ducts/glands: No swelling Lids w/ evertion: Normal, no foreign body Conj/[place]: + Bilateral conjunctival injection, right greater than left. Small corneal abrasion on the right, and a 7 o'clock position. No ulcers seen. Negative Fluorescein/[facility]: Normal External Ears, Nose and Mouth. Neck: Full range of motion. No meningismus. Skin: No petechiae or rashes Back: No midline or flank tenderness Ext: No cyanosis, or edema Neur: Awake and alert Psych: Normal Mood and Affect Results 24 hrs Current Medications Medications Dose Sig/Jorje Start Time Status Last (Trade) Ordered Route PRN Stop Time Admin Dose Reason Admin Tetracaine 1 drop ONCE ONCE 11/24/18 DC HCl RIGHT EYE 20:00 (Tetracaine 11/24/18 20:01 0.5% Steri-Unit Freda) Fluorescein 1 strip ONCE ONCE 11/24/18 DC Sodium BOTH EYES 20:30 ([id number] 11/24/18 20:31 p) Procedures/MDM PROCEDURES: Procedure Note: After obtaining informed consent, the bilateral eye was stained using fluorescein dye. After staining the eye, A Wood's lamp was used to evaluate the eye. There is no foreign body noted in the eye. Small corneal abrasion seen at the 7 o'clock position of the right eye. Patient tolerated procedure well. MEDICAL DECISION MAKIN-year-old male with no significant past medical history presents with complaints of bilateral eye injection and pain. He does have evidence of a small corneal abrasion on the right. Clinical picture not consistent with d endritic ulcers, orbital cellulitis, deep space infection, globe rupture, retinal detachment or other ophthalmalic emergency. Given rx abx as well as [place] for pain. Recommend f/u with PCP in 1-2 days, retun to the ED sooner for any new or worsening sx. PRESCRIPTIONS: Erythromycin ointment, [place] SPECIALIST FOLLOW UP RECOMMENDED: [facility] ophthalmology Patient has been advised to follow up with primary care in 1-2 days. Departure Diagnosis: Primary Impression: Pain in eye Laterality: right Qualified Codes: H57.11 - Ocular pain, right eye Additional Impression: Corneal abrasion Encounter type: initial encounter Laterality: right Qualified Codes: S05.01XA - Injury of conjunctiva and corneal abrasion without foreign body, right eye, initial encounter Condition: Stable Patient Instructions: Understanding Red Eye: Causes Referrals: [facility] Hours: Mon - Fri 9:00 AM - 5:00 PM Additional Instructions: You must follow-up with an senior instructor tomorrow. Take the pain medications as needed. Apply the ointment for the next 5 days. Return here for any new or worsening symptoms. KONSTANTIN KRISHNAN PA-C November 25, 2018 03:46
== END 2018-11-24 20:46 | disposition home or self-care (01) ==
LOC: FTE 16:48
DX: S05.01XA Injury of conjunctiva and corneal abrasion without foreign body, right eye, initial encounter (principal); X58.XXXA Exposure to other specified factors, initial encounter; Y92.9 Unspecified place or not applicable
CPT/HCPCS: Z7610 ×2; 99283

== ENCOUNTER 2019-05-09 10:41 | Emergency (ER) | payer MEDICAID ==
[~2019-05-09] VITALS: Ht 182.9 cm; Wt 90.0 kg
[~2019-05-09 10:41] MED LIST changes: +BENZ200C68 PO; -DOXY100T21 PO; +DOXY100T34 PO; +ERYT1OIN6 BOTH EYES; +FEXO180T61 PO; +HYDR-4011 PO; +POLY10DR19 BOTH EYES
[2019-05-09 10:48] VITALS: Ht 182.9 cm; Wt 90.0 kg
[2019-05-09] MEDS ORDERED: HYDROCODONE/APAP (5/325) TAB PO ONE (11:30)
[2019-05-09] MEDS ORDERED: DIPHTH/TET/ACEL PERTUSS (ADULT) 0.5 ML VIAL IM* ONE (11:30)
[2019-05-09] MEDS ORDERED: LIDOCAINE 1% (MDV) 20 ML INJ SC ONE (12:30)
[2019-05-09] MEDS ORDERED: morphine 4 MG/ML VIAL IV STA (14:55)
[2019-05-09 18:37] VITALS: BP 139/101; PULSE 69; RESP 20
[2019-05-09] MEDS ORDERED: KETOROLAC 30 MG INJ IV STA (19:16)
== END 2019-05-09 19:29 | disposition home or self-care (01) ==
LOC: FTE 10:41 → E/R 19:29
DX: S00.03XA Contusion of scalp, initial encounter (principal); W22.8XXA Striking against or struck by other objects, initial encounter; Y92.812 Truck as the place of occurrence of the external cause; Z23 Encounter for immunization
CPT/HCPCS: 70450; 72125; 80053; 85025; 85610; 85730; 90471; 90715; 96374; 96375; J1885; J2270; Z7502; Z7610